=== PATIENT | female | born 1955 | race Caucasian/White ===

== ENCOUNTER 2019-07-14 08:16 | Day surgery (SDC) | payer BC, SELFPAY ==
[2019-07-13 10:24] VITALS: BMI 26.0
--- NOTE | 2019-07-14 09:00 | P.ANESASSM_ITS ---
Pre-Anesthetic Assessment Pre-Anesthetic Assessment: Height/Weight: Height 1.6 m Weight 66.678 kg Proposed Procedure: Operation Date: 07/14/19 09:45 Proposed Procedures p Colonoscopy(Not Applicable) - Lee Wheeler MD Was Beta Le taken within 24 hours: N/A Social: Social History: No alcohol and No tobacco Exam: Pre-Anes Outpt Exam: alert, oriented x 3, clear to auscultation bilaterally and regular rate & rhythm Airway: Submandibular: WNL Cervical ROM: WNL MP: 1 Dentition: Full Pulmonary: Pulmonary: None reported CV/HEM: CV/HEM: HTN : : None reported Hepatic: Hepatic: None reported GI: GI: None reported Metabolic: Metabolic: None reported Musc/skel: Musc/skel: None reported Neuropsych: Neuropsych: None reported Anesthetic Plan: ASA status: 2 Anesthesia: MAC Risk of > 500 ml blood loss (7ml/kg in children): No PFSH Anesthesia PFSH: Social History Smoking and tobacco status: never smoked Second hand smoke exposure: No Alcohol intake: never Adopted: No Caregiver/support person: Yes Lives independently: Yes Household members: spouse Housing: House Marital status: service: No Current occupational status: retired Current occupational exposures/hazards: No Pets and animals: No History of recent travel: No Leisure activites: exercise Sexually active: No Current gender identity: Female Salma/Jehovah'[employer] Witness: Orthodoxy Special salma needs: No Agree to transfusion: No Financial difficulty paying for basics: Decline to Answer Data Anesthesia Cardiac Studies: No Data to Display
[2019-07-14 09:16] VITALS: BP 136/88; PULSE 89; RESP 18; TEMP 36.1; O2SAT 98
[2019-07-14] MEDS: sodium chloride 0.9% 1,000 ML 30 ML (09:23)
--- NOTE | 2019-07-14 09:46 | W.PM.OPSUD ---
Surgery/Procedure H&P Update DATE OF PROCEDURE: July 14, 2019 DATE H&P PERFORMED: 07/08/19 H&P UPDATE INFORMATION: I have reviewed H&P completed within last 30 days, I have examined patient prior to procedure and No changes to prior documentation PREOP DIAGNOSIS: Screening colonoscopy PRIMARY INDICATION FOR PROCEDURE: The same PLANNED PROCEDURE: Operation Date: 07/14/19 09:45 Proposed Procedures p Colonoscopy(Not Applicable) - Lee Wheeler MD
--- NOTE | 2019-07-14 11:17 | SUR.OPER ---
INK INJECTED AT THE RECTAL/SIGMOID MASS SITE
--- NOTE | 2019-07-14 11:41 | SUR.OPER ---
CLIPS PLACED AT RECTAL/SIGMOID MASS SITE
[2019-07-14 11:47] VITALS: BP 96/59; PULSE 71; RESP 16; O2SAT 97
[2019-07-14 12:01] VITALS: BP 103/52; PULSE 66; RESP 18; O2SAT 100
[2019-07-14 13:15] LABS: Carcinoembryonic Antigen 4.2 ng/mL (0.0-4.7)
== END 2019-07-14 12:43 | disposition home or self-care (01) ==
PROVIDERS: Family Provider Family Medicine; PCP Family Medicine; Visit Provider Surgery
PROC: 0DJD8ZZ Inspection of Lower Intestinal Tract, Via Natural or Artificial Opening Endoscopic (ICD-10-PCS; CPT 45378; principal; 2019-07-14 09:45)
DX: Z12.11 Encounter for screening for malignant neoplasm of colon (principal); D12.8 Benign neoplasm of rectum; I10 Essential (primary) hypertension; Z82.49 Family history of ischemic heart disease and other diseases of the circulatory system
CPT/HCPCS: 12345; 36415; 45385; 82378; 88305; J2704; J7030

== ENCOUNTER 2019-07-23 09:04 | Outpatient (CLI) | payer BC, SELFPAY ==
--- NOTE | 2019-07-23 10:30 | CT_ITS ---
WS: [id number] CT scan of the abdomen and pelvis with Oral and IV contrast. Additional two-dimensional coronal and s agittal reconstruction was performed. 07/23/2019 Clinical Data: rectal/sigmoid mass Comparison: None. DLP: 1003.[address] scans at [facility] use at least one of these dose optimization techniques: automat ed exposure control; mA and/or kV adjustment per patient size (includes targeted exams where dose is matched to clinical indication); or iterative reconstruction. Findings: The lower lungs show no nodules, masses or effusions. The liver, gallbladder, spleen, adrenal glands and pancreas are normal. The kidneys show equal bilateral contrast excretion with no cyst or masses. The abdominal aorta is normal in size. No appendicitis or diverticulitis is seen. Oral contrast is in the stomach, small bowel and colon. No abscess, adenopathy, ascites, mass, obstruction or free air is seen. There are large number of diver ticula in the descending colon. There are clips in the posterior aspect of the junction of the sigmoi d colon and rectum. The bladder is unremarkable. The uterus is normal. No inguinal hernia is seen. The bones of the lower thorax, lumbar spine, pelvis, and hips are normal. CT/CT abdomen pelvis w con* [id number] Impression: 1. Negative for acute intra-abdominal abnormalities. 2. Negative for definite sigmoid or rectal masses. 3. Clips at the posterior wall of the junction of the sigmoid colon and rectum.
[2019-07-23] MEDS: iohexol 300 mg/mL 50 mL Btl PO (10:50)
[2019-07-23] MEDS: iodixanol 320 mg/mL 100mL Btl IV (11:07)
== END 2019-07-23 09:05 | disposition home or self-care (01) ==
LOC: RADWPI 09:08
PROVIDERS: Family Provider Family Medicine; PCP Family Medicine; Visit Provider Surgery
DX: K62.89 Other specified diseases of anus and rectum (principal)
CPT/HCPCS: 74177; Q9967

== ENCOUNTER 2021-02-09 12:46 | Outpatient (CLI) | payer MEDICARE, SELFPAY ==
--- NOTE | 2021-02-09 13:12 | MM_ITS ---
WS: [id number] BILATERAL DIGITAL SCREENING MAMMOGRAPHY WITH CAD CLINICAL INFORMATION: SCREENING HISTORY: Screening mammogram. No current complaints. COMPARISON: TECHNIQUE: Bilateral CC and MLO views. FINDINGS: Scattered fibroglandular densities bilaterally. No suspicious focal mass, asymmetry, calcifications, or architectural distortion. No evidence of malignancy. Tiny incidental punctate calcifications. MM/[id number] IMPRESSION: BI-RADS: 2-Benign FOLLOW UP: 1 Year Follow-up Recommend return to annual screening mammography.
== END 2021-02-09 12:47 | disposition home or self-care (01) ==
LOC: RADSHAW 12:52
PROVIDERS: PCP Family Medicine; Visit Provider Family Medicine
DX: Z12.31 Encounter for screening mammogram for malignant neoplasm of breast (principal)
CPT/HCPCS: 77067

== ENCOUNTER 2022-02-14 10:20 | Outpatient (CLI) | payer MEDICARE, SELFPAY ==
--- NOTE | 2022-02-14 10:34 | MM_ITS ---
WS: [id number] Bilateral screening 3D tomosynthesis digital mammogram, 02/14/2022 Clinical Data: SCREEN Comparison: 02/09/2021, 11/17/2015, 02/12/2012, 03/13/2010, 08/12/2008, 06/09/2007. Findings: The breast parenchymal pattern shows fibroglandular tissue. No spiculated masses or clustered calcifi cations are seen. There are no secondary signs of carcinoma. MM/[id number] Impression: 1. Negative bilateral mammogram unchanged. 2. Recommend annual screening mammograms. BIRADS: 1-Negative FOLLOW UP: 1 Year Follow-up The CAD bingo checker was used.
== END 2022-02-14 10:21 | disposition home or self-care (01) ==
LOC: RAD 10:21
PROVIDERS: PCP Family Medicine; Visit Provider Family Medicine
DX: Z12.31 Encounter for screening mammogram for malignant neoplasm of breast (principal)
CPT/HCPCS: 77063; 77067

== ENCOUNTER → 2023-11-13 12:49 | Outpatient (CLI) | payer MEDICARE, SELFPAY ==
--- NOTE | 2023-11-13 12:55 | MM_ITS ---
WS: [id number] BILATERAL 3D TOMOSYNTHESIS DIGITAL SCREENING MAMMOGRAPHY WITH CAD CLINICAL INFORMATION: SCREENING HISTORY: Screening mammogram. No current complaints. COMPARISON: 2021 TECHNIQUE: Bilateral CC and MLO views. FINDINGS: Scattered fibroglandular densities bilaterally. No suspicious focal mass, asymmetry, calcifications, or architectural distortion. No evidence of malignancy. Incidental punctate calcifications. MM/[id number] IMPRESSION: BI-RADS: 2-Benign FOLLOW UP: 1 Year Follow-up Recommend return to annual screening mammography.
== END | disposition home or self-care (01) ==
LOC: RAD 12:50
PROVIDERS: PCP Family Medicine; Visit Provider Family Medicine
DX: Z12.31 Encounter for screening mammogram for malignant neoplasm of breast (principal); R92.323 Mammographic fibroglandular density, bilateral breasts; R92.1 Mammographic calcification found on diagnostic imaging of breast
CPT/HCPCS: 77063; 77067